=== PATIENT | male | born 1985 | race Caucasian/White ===

== ENCOUNTER 2022-02-01 04:05 | Inpatient (IN) | payer OTHER ==
[~2022-02-01] VITALS: Ht 182.9 cm; Wt 152.0 kg
[2022-02-01] VITALS (16 sets, daily range): BP systolic 88–205; BP diastolic 51–107
[~2022-02-01 04:05] MED LIST: 12HOUR DECONGE120 MG PO; AMOX/K CLAV875 M1 PO; AMOXICILLIN500 MG OR; AMOXICILLIN500 MG PO; CHERATUSSIN OR; MOTRIN800 MG OR; NAPROSYN500 MG OR; NO HOME MEDS; ZYRTEC-D AL1 OR
[2022-02-01 04:36] LABS: HEMATOCRIT 41.9 % (39.0-50.0); HEMOGLOBIN 14.1 g/dl (14.0-18.0); IMMATURE GRANULOCYTES 0.4 % (0.0-5.0); MEAN CORPUSCULAR HGB 29.6 pG CALC (26.0-32.0); MEAN CORPUSCULAR HGB CONC 33.7 g/dL CAL (32.0-36.0); NEUT# 18.78 thou/uL (1.82-7.42); RED BLOOD COUNT 4.76 mill/uL (4.70-6.10); RED CELL DISTRI WIDTH 12.2 % (11.5-15.5)
[2022-02-01 04:48] LABS: ALBUMIN 4.5 g/dL (3.2-5.0); ALKALINE PHOSPHATASE 76 u/l (38-126); ANION GAP 17 (6-22 (CALC)); BILIRUBIN, TOTAL 0.5 mg/dL (0.0-1.4); BUN 12 mg/dL (9-20); BUN/CREATININE RATIO 9 (12-20 (CALC)); CARBON DIOXIDE 22 mmol/l (22-30); CHLORIDE 98 mmol/l (95-108); CREATININE 1.3 mg/dL (0.7-1.3); ETHYL ALCOHOL 139 mg/dl (0-30); GFR FOR AFR.AMER. > 60 ML/MIN (>=60 (CALC)); GFR OTHER RACES > 60 ML/MIN (>=60 (CALC)); LIPASE 50 u/l (23-300); POTASSIUM 3.7 mmol/l (3.5-5.1); SGOT/AST 130 u/l (17-59); SODIUM 134 mmol/l (137-146); TOTAL PROTEIN 7.1 g/dL (6.3-8.2)
[2022-02-01 04:48] LABS: PROTHROMBIN TIME 9.5 SECONDS (9.0-12.5)
[2022-02-01 04:57] LABS: CPK 3192 u/l (52-200)
[2022-02-02 00:52] LABS: URINE BLOOD DIPSTICK TRACE-INTACT (NEGATIVE); URINE COLOR YELLOW; URINE GLUCOSE - DIPSTICK NEGATIVE (NEGATIVE); URINE KETONE 40 mg/dL (NEGATIVE); URINE LEUK ESTERASE NEGATIVE (NEGATIVE); URINE PROTEIN - DIPSTICK NEGATIVE (NEG-TRACE); URINE SPECIFIC GRAVITY >=1.030; URINE UROBILINOGEN - DIPSTICK 0.2 E.U./dL (0.2)
[2022-02-02 00:54] LABS: URINE BILIRUBIN - DIPSTICK SMALL (NEGATIVE); URINE NITRITE - DIPSTICK NEGATIVE (Negative)
[2022-02-02 04:36] VITALS: BP 145/88
[2022-02-02 05:53] LABS: HEMATOCRIT 37.3 % (39.0-50.0); HEMOGLOBIN 12.3 g/dl (14.0-18.0); IMMATURE GRANULOCYTES 0.1 % (0.0-5.0); MEAN CELL VOLUME 90.3 fL CALC (80.0-100.0); MEAN CORPUSCULAR HGB 29.8 pG CALC (26.0-32.0); NEUT# 6.43 thou/uL (1.82-7.42); RED BLOOD COUNT 4.13 mill/uL (4.70-6.10); RED CELL DISTRI WIDTH 12.5 % (11.5-15.5)
[2022-02-02 06:09] LABS: ALKALINE PHOSPHATASE 64 u/l (38-126); ANION GAP 7 (6-22 (CALC)); BILIRUBIN, TOTAL 0.7 mg/dL (0.0-1.4); BUN 9 mg/dL (9-20); BUN/CREATININE RATIO 14 (12-20 (CALC)); CARBON DIOXIDE 26 mmol/l (22-30); CHLORIDE 104 mmol/l (95-108); CREATININE 0.7 mg/dL (0.7-1.3); GFR FOR AFR.AMER. > 60 ML/MIN (>=60 (CALC)); GFR OTHER RACES > 60 ML/MIN (>=60 (CALC)); POTASSIUM 3.7 mmol/l (3.5-5.1); SGOT/AST 107 u/l (17-59); SODIUM 134 mmol/l (137-146)
[2022-02-02 06:27] LABS: ALBUMIN 3.1 g/dL (3.2-5.0); CPK 2596 u/l (52-200); TOTAL PROTEIN 5.3 g/dL (6.3-8.2)
[2022-02-02 06:53] VITALS: BP 153/90
[2022-02-02 09:30] VITALS: BP 145/87
[2022-02-02 14:30] VITALS: BP 120/69
[2022-02-02 19:02] VITALS: BP 137/71
[2022-02-03 01:11] VITALS: BP 138/76
[2022-02-03 03:34] VITALS: BP 151/91
[2022-02-03 05:31] LABS: AMYLASE 58 u/l (30-110); ANION GAP 9 (6-22 (CALC)); BUN 9 mg/dL (9-20); BUN/CREATININE RATIO 11 (12-20 (CALC)); CARBON DIOXIDE 27 mmol/l (22-30); CHLORIDE 103 mmol/l (95-108); CPK 1337 u/l (52-200); CREATININE 0.8 mg/dL (0.7-1.3); GFR FOR AFR.AMER. > 60 ML/MIN (>=60 (CALC)); GFR OTHER RACES > 60 ML/MIN (>=60 (CALC)); LIPASE 22 u/l (23-300); MAGNESIUM 1.9 mg/dL (1.6-2.3); POTASSIUM 3.7 mmol/l (3.5-5.1); SODIUM 135 mmol/l (137-146)
[2022-02-03 05:41] LABS: HEMATOCRIT 35.8 % (39.0-50.0); HEMOGLOBIN 11.5 g/dl (14.0-18.0); IMMATURE GRANULOCYTES 0.3 % (0.0-5.0); MEAN CELL VOLUME 91.3 fL CALC (80.0-100.0); MEAN CORPUSCULAR HGB 29.3 pG CALC (26.0-32.0); MEAN CORPUSCULAR HGB CONC 32.1 g/dL CAL (32.0-36.0); NEUT# 6.96 thou/uL (1.82-7.42); RED BLOOD COUNT 3.92 mill/uL (4.70-6.10); RED CELL DISTRI WIDTH 12.5 % (11.5-15.5)
[2022-02-03 06:33] VITALS: BP 151/105
[2022-02-03 06:34] VITALS: BP 151/105
[2022-02-03 09:05] VITALS: BP 149/89
[2022-02-03] MEDS ORDERED: FLEXERIL5 M1 PO (09:57)
[2022-02-03] MEDS ORDERED: OXYCODONE5 M1 PO (09:58)
== END 2022-02-03 13:12 | disposition home or self-care (01) | DRG 565 ==
LOC: ED 04:05 → MS2 08:10
PROVIDERS: Emergency Medicine; Nurse Practitioner; ADMIT Internal Medicine; ATTEND Internal Medicine
PROC: 0T9B70Z Drainage of Bladder with Drainage Device, Via Natural or Artificial Opening (ICD-10-PCS; principal; 2022-02-01)
DX: T79.6XXA Traumatic ischemia of muscle, initial encounter (principal); S32.010A Wedge compression fracture of first lumbar vertebra, initial encounter for closed fracture; E87.1 Hypo-osmolality and hyponatremia; S01.81XA Laceration without foreign body of other part of head, initial encounter; S30.1XXA Contusion of abdominal wall, initial encounter; M25.551 Pain in right hip; M25.552 Pain in left hip; F10.129 Alcohol abuse with intoxication, unspecified; V86.55XA Driver of 3- or 4- wheeled all-terrain vehicle (ATV) injured in nontraffic accident, initial encounter; Y93.I9 Activity, other involving external motion; Y92.410 Unspecified street and highway as the place of occurrence of the external cause
CPT/HCPCS: J1650; Q9967; S0164